=== PATIENT | male | born 1955 | race Two or more races ===

== ENCOUNTER 2016-10-05 13:40 | Emergency (ER) | payer MEDICAID ==
[~2016-10-05] VITALS: Ht 180.3 cm; Wt 76.4 kg
[2016-10-05 13:42] VITALS: BP 164/93
== END 2016-10-05 14:55 | disposition home or self-care (01) ==
LOC: ED 14:27
DX: S33.5XXA Sprain of ligaments of lumbar spine, initial encounter (principal); J20.9 Acute bronchitis, unspecified; Z88.6 Allergy status to analgesic agent; X58.XXXA Exposure to other specified factors, initial encounter; Y93.89 Activity, other specified; Y92.89 Other specified places as the place of occurrence of the external cause; Y99.8 Other external cause status
CPT/HCPCS: 71020; 99284

== ENCOUNTER 2017-04-03 15:02 | Emergency (ER) | payer MEDICARE, MEDICAID ==
[~2017-04-03] VITALS: Ht 180.3 cm; Wt 72.7 kg
[2017-04-03 15:14] VITALS: BP 135/85
== END 2017-04-03 15:54 | disposition home or self-care (01) ==
LOC: ED 15:51
DX: Z76.0 Encounter for issue of repeat prescription (principal); G89.29 Other chronic pain; M54.5 Low back pain; I10 Essential (primary) hypertension
CPT/HCPCS: 99283